=== PATIENT | female | born 1960 | race Caucasian/White ===

== ENCOUNTER 2017-03-03 22:07 | Observation (INO) ==
[2017-03-03] MEDS ORDERED: Nitroglycerin 0.4 MG TAB.SUBL SL ONE (22:26)
--- NOTE | 2017-03-03 22:31 | Emergency Department Note ---
Disposition Clinical Impression: Chest pain Qualifiers: Chest pain type: unspecified Qualified Code(s): R07.9 - Chest pain, unspecified Disposition: Admitted As Inpatient Condition: Good Chest Pain HPI - General Chief Complaint: ED Chest Pain Stated Complaint: chest pain Time Seen by Provider: 03/03/17 22:13 Source: patient Mode of arrival: EMS Limitations: no limitations Vital Signs Reviewed: Yes Nursing Notes Reviewed: Yes - History of Present Illness HPI Narrative: 57-year-old female history of hypertension, hyperlipidemia, diabetes who presents to the ER with a chief complaint of chest pain and dizziness. Patient states she was at work walking around when ever she experienced dizziness with left-sided chest pain. Describes it as pressure with radiation into her left arm. She states she also felt short of breath at that time. Patient sat down and EMS was called. Dizziness improved but she continued to have residual left- sided chest pain. Patient was given aspirin and 1 nitroglycerin prior to arrival. She reports she thinks she had a left heart catheterization in 2014 with a 30% blockage. She currently denies feeling dizzy. Does continue to have left-sided chest pain. Denies dyspnea, nausea, vomiting. No history of NM , DVT or PE. No other complaints. 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 Denies: nausea, vomiting, diaphoresis, syncope Treatments prior to arrival chest pain: aspirin, nitroglycerin - Related Data On Oral Contraceptives: No Home Medications Medication Instructions Recorded Confirmed Aspirin [Adult Low Dose Aspirin EC] 81 mg PO DAILY 09/18/15 03/04/17 Ibuprofen [Motrin] 800 mg PO TID 09/18/15 03/04/17 Lisinopril [Lisinopril] 10 mg PO DAILY 12/30/15 03/04/17 Loratadine [Allergy Relief] 10 mg PO DAILY 06/18/16 03/04/17 Citalopram [CeleXA] 20 mg PO DAILY 03/04/17 03/04/17 Fenofibrate Nanocrystallized 145 mg PO DAILY 03/04/17 03/04/17 [Tricor] glyBURIDE [GlyBURIDE] 0.5 tab PO 0800 03/04/17 03/04/17 Allergies Allergy/AdvReac Type Severity Reaction Status Date / Time ciprofloxacin [From Cipro] Allergy Dizziness Verified 09/18/15 18:35 Erythromycin Base Allergy Hives Verified 09/18/15 18:33 [From Erythrocin] All systems ED: reviewed and negative except as stated. Constitutional: Denies: fever Cardiovascular: Reports: chest pain. Denies: dyspnea on exertion Respiratory: Reports: dyspnea. Denies: cough, wheezes Gastrointestinal: Reports: nausea. Denies: abdominal pain, vomiting, diarrhea Neurological: Reports: other (dizziness). Denies: headache Chest Pain PMH - Past Medical History Medical history: Reports: diabetes, hyperlipidemia, hypertension, other Surgical history: Reports: appendectomy, , hysterectomy, other Psychiatric history: Reports: anxiety, depression, panic disorder - Social History Smoking Status: Never smoker Alcohol use: Reports: none Drug use: Reports: none Physical Exam - General Limitations: no limitations General appearance: alert, in no apparent distress - Head Head exam: atraumatic, normocephalic, normal inspection - Eye Eye exam: Present: normal appearance, EOMI - ENT ENT exam: normal exam - Neck Neck exam: Present: normal inspection, full ROM - Chest Chest inspection: Present: normal inspection, symmetric chest wall rise - Respiratory Respiratory exam: Present: normal lung sounds bilaterally - Cardiovascular Cardiovascular exam: Present: regular rate, normal rhythm, normal heart sounds - Abdominal Exam Abdominal exam: Present: soft, Non-Tender. Absent: tenderness - Extremities Exam Extremities exam: Present: normal inspection, full ROM - Expanded Upper Extremity Exam Shoulder exam: Present: normal inspection, full ROM Arm exam: Present: normal inspection, full ROM Elbow exam: Present: normal inspection, full ROM Forearm/Wrist exam: Present: normal inspection, full ROM Hand exam: Present: normal inspection, full ROM Vascular exam: Normal: radial pulse - Expanded Lower Extremity Exam Hip/Pelvis exam: Present: normal inspection, full ROM Upper leg exam: Present: normal inspection, full ROM Knee exam: Present: normal inspection, full ROM Lower leg exam: Present: normal inspection, full ROM Ankle exam: Present: normal inspection, full ROM Foot/toe exam: Present: normal inspection, full ROM Neurovascular/Tendon exam: Absent: motor deficit, sensory deficit - Neurological Exam Neurological exam: Present: alert, other (GCS 15. Nonfocal neurologic exam. Moves all extremities equally.) - Psychiatric Psychiatric exam: Present: normal affect, normal mood - Skin Skin exam: Present: warm, dry, intact, normal color Course Course Narrative: Patient seen and examined. Vital signs reviewed. We will continue giving nitroglycerin for chest pain. She has a nonfocal neurologic exam here with improvement dizziness. We will get an EKG, chest x-ray, labs including troponin. Patient will likely require admission for chest pain rule out. - Reevaluation(s) Reevaluation #1: Discussed results of labs and imaging with the patient. She is currently chest pain-free. Vital Signs Temperature 99.3 F 03/03/17 22:18 Pulse Rate 71 03/03/17 22:18 Respiratory Rate 20 03/03/17 22:18 Blood Pressure 118/91 03/03/17 22:18 O2 Sat by Pulse Oximetry 98 03/03/17 22:18 Temperature 98.3 F 03/04/17 15:03 Pulse Rate 61 03/04/17 15:03 Respiratory Rate 16 03/04/17 15:03 Blood Pressure 118/67 03/04/17 15:03 O2 Sat by Pulse Oximetry 96 03/04/17 15:03 Oxygen Delivery Oxygen Delivery Room Air Chest Pain - MDM Narrative Medical decision making narrative: 57-year-old female presents to the ER due to left-sided chest pain and dizziness. Chest pain resolved here after 2 nitroglycerin. EKG is nonischemic. Chest x-ray unremarkable. Initial troponin is negative. She is currently chest pain-free. Admitted to the hospitalist service for chest pain rule out. - Lab Data Lab results reviewed: Yes I reviewed the patient's lab results. Result diagrams: 03/04/17 05:35 03/04/17 05:35 Lab Results 03/03/17 03/03/17 03/03/17 Range/Units 22:42 22:42 22:42 WBC 9.7 (4.3-11.1) K/mcL RBC 4.26 (3.82-4.97) M/mcL Hgb 12.2 (11.5-15.4) g/dL Hct 36.7 (35.3-44.9) % MCV 86.2 (83.0-100.0) fL MCH 28.6 (28.0-33.3) pg MCHC 33.2 (31.6-35.5) g/dL RDW 13.2 (11.5-14.5) % Plt Count 254 (140-400) K/mcL MPV 9.9 (9.4-12.4) fL Immature Gran % 0.2 (0-4) % Seg Neutrophils % 62.3 % Lymphocytes % 29.1 % Monocytes % 5.8 % Eosinophils % 2.1 % Basophils % 0.5 % Neutrophils # 6.0 (1.6-8.9) K/mcL Lymphocytes # 2.8 (0.6-4.6) K/mcL Monocytes # 0.6 (0.0-1.3) K/mcL Eosinophils # 0.2 (0.0-0.6) K/mcL Basophils # 0.1 (0.0-0.2) K/mcL Sodium 141 (136-145) mEq/L Potassium 3.6 (3.5-4.5) mEq/L Chloride 109 (98-109) mEq/L Carbon Dioxide 22 (19-29) mEq/L BUN 30 H (7-20) mg/dL Creatinine 1.00 (0.57-1.11) mg/dL Est GFR ( Amer) > 60 (> 60) Est GFR (Non-Af Amer) 57 L (> 60) BUN/Creatinine Ratio 30 H (6-26) Glucose 152 H (70-99) mg/dL Calculated Osmolality 301 H (280-300) Calcium 9.5 (8.6-10.8) mg/dL Troponin I (0-0.03) ng/mL B-Natriuretic Peptide 47 (0-100) pg/mL 03/03/17 Range/Units 22:42 WBC (4.3-11.1) K/mcL RBC (3.82-4.97) M/mcL Hgb (11.5-15.4) g/dL Hct (35.3-44.9) % MCV (83.0-100.0) fL MCH (28.0-33.3) pg MCHC (31.6-35.5) g/dL RDW (11.5-14.5) % Plt Count (140-400) K/mcL MPV (9.4-12.4) fL Immature Gran % (0-4) % Seg Neutrophils % % Lymphocytes % % Monocytes % % Eosinophils % % Basophils % % Neutrophils # (1.6-8.9) K/mcL Lymphocytes # (0.6-4.6) K/mcL Monocytes # (0.0-1.3) K/mcL Eosinophils # (0.0-0.6) K/mcL Basophils # (0.0-0.2) K/mcL Sodium (136-145) mEq/L Potassium (3.5-4.5) mEq/L Chloride (98-109) mEq/L Carbon Dioxide (19-29) mEq/L BUN (7-20) mg/dL Creatinine (0.57-1.11) mg/dL Est GFR ( Amer) (> 60) Est GFR (Non-Af Amer) (> 60) BUN/Creatinine Ratio (6-26) Glucose (70-99) mg/dL Calculated Osmolality (280-300) Calcium (8.6-10.8) mg/dL Troponin I 0.00 (0-0.03) ng/mL B-Natriuretic Peptide (0-100) pg/mL - Radiology Data Radiology results reviewed: Yes I reviewed the patient's radiology results. Chest X-Ray 03/03/17 22:26 IMPRESSION: No acute cardiopulmonary process. D/ / Roosevelt Reyes MD / Roosevelt Reyes MD Interpreting Provider: Roosevelt Reyes MD - EKG Data EKG attestation: Yes I reviewed and interpreted this EKG. EKG results narrative: EKG demonstrates sinus rhythm with a rate of 77 bpm. Normal axis. Normal intervals. T-wave flattening in lead 3 unchanged from previous. No ST elevations or depressions. No acute ischemic findings. No significant changes from previous EKG dated 09/18/15. Heart Score - Score History: Slightly Suspicious EKG: Normal Age: 45-65 Risk Factors: Equal/Greater than 3 risk factor or history of atherosclerotic disease Troponin: Less than normal limit HEART Score Total: 3 S.B.A.R. - S.B.A.R. Situation: Demographics, MOA Background: Presenting Complaint, Relevant PMH, Meds, & Allergies Assessment: Vital Signs, Course and respsone to treatment, Exam Concerns, Patient/Family Expectation, Pertinant Lab Results, Outstanding Labs Recommendation: Barrier(s) to disposition, Recommendation based on pending studies, treatments, or consults S.B.A.R. Report Given to: Dr. Miranda Attestation Statement - Attestation Attestation: I examined this patient and my medical decision-making was reviewed with the Resident Physician, Dr. Gandhi. I agree with the documented findings, disposition and treatment plan as described except to the extent set forth below. Pt is a 57 yo wf, hx DM, HTN, hyperlipidemia, who presents with L sided CP which began at work with SOB and dizziness. Pt given baby ASA and 1 nitro with improved sxs on arrival to ER. Pt with hx CAD, hx LHC with known CAD. I agree with PE findings as documented. EKG NSR with no ischemic changes. Pt given nitro x 2 with resolution of sxs. Pt labs including trop and CXR wnl. Pt admitted for further eval of CP.
[2017-03-03 22:50] LABS: Basophils # 0.1 K/mcL (0.0-0.2); Basophils % 0.5 %; Eosinophils # 0.2 K/mcL (0.0-0.6); Eosinophils % 2.1 %; Hematocrit 36.7 % (35.3-44.9); Hemoglobin 12.2 g/dL (11.5-15.4); Immature Granulocytes % 0.2 % (0-4); Lymphocytes # 2.8 K/mcL (0.6-4.6); Lymphocytes % 29.1 %; Mean Corpuscular HGB Conc 33.2 g/dL (31.6-35.5); Mean Corpuscular Hemoglobin 28.6 pg (28.0-33.3); Mean Corpuscular Volume 86.2 fL (83.0-100.0); Mean Platelet Volume 9.9 fL (9.4-12.4); Monocytes # 0.6 K/mcL (0.0-1.3); Monocytes % 5.8 %; Platelet Count 254 K/mcL (140-400); Red Blood Count 4.26 M/mcL (3.82-4.97); Red Cell Distribution Width 13.2 % (11.5-14.5); Segmented Neutrophils % 62.3 %
[2017-03-03 23:01] LABS: BUN/Creatinine Ratio 30 (6-26); Blood Urea Nitrogen 30 mg/dL (7-20); Calcium 9.5 mg/dL (8.6-10.8); Carbon Dioxide 22 mEq/L (19-29); Chloride 109 mEq/L (98-109); Glucose 152 mg/dL (70-99); Osmolality,Calculated 301 (280-300); Potassium 3.6 mEq/L (3.5-4.5); Sodium 141 mEq/L (136-145); eGFR For African Americans > 60 (> 60); eGFR For Non-African Americans 57 (> 60)
--- NOTE | 2017-03-04 01:22 | Internal Med History&Physical ---
<Tung Brand - Last Filed: 03/04/17 01:52> Date of Encounter: 03/04/17 Time of Encounter: 00:30 Assessment and Plan (1) Pre-syncope Current visit: Yes Status: Acute Patient describes episode of presyncope at work earlier this seeking. She states she was bending over when it occurred originally it was made worse by standing. During this episode she began having chest pain as described earlier. During the presyncopal event she felt dizziness, vertigo, and nausea. She reports that he was made worse when she tried to sit and further worse when trying to stand. She states she was working in a hot environment, she was also started on glyburide this weekend. Patient presyncope could be result of hot environment, dehydration, chemical exposures (though unlikely), I prolactinemia, or ACS. We will pursue chest and rule out as below with echocardiogram, stress tests, trending troponins We will obtain bilateral carotid ultrasounds Initial started on 75 mL an hour, will saline We will hold patient glyburide and continue low-dose insulin sliding scale subcutaneously Continuous cardiac monitoring Supplemental oxygen as needed We will obtain hemoglobin A1c, lipid panel, electrolytes, PT/INR (2) Chest pain Current visit: Yes Status: Acute Patient reports chest pain starting in the left upper chest following episode of presyncope. Was described as heavy in character. She states that her chest pain moved to the center of her chest which tried to stand during her presyncopal episode. During this time she felt heaviness in her left arm as well. She denies having diaphoresis but does report nausea during this event. Patient has known history of CAD with 30% blockage from prior catheterization. Previous echo showed no abnormalities. Trend troponins every 6 hours We will obtain full echocardiogram We will obtain stress test Morphine and nitroglycerin for continued chest pain Qualifiers: Chest pain type: unspecified Qualified Code(s): R07.9 - Chest pain, unspecified (3) Diabetes mellitus Current visit: Yes Status: Acute Patient has history of type 2 diabetes, previously was controlled through left cell modifications but was started on glyburide on Friday. Patient's presyncopal episode and chest pain was the evening of Friday03/03/17. Hypoglycemia given her recent start medication is Prevacid differential for presyncope. 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 Will be admitted for chest pain rule out, initial troponin negative, no alarming EKG findings. Plan as above Qualifiers: Coronary Disease-Associated Artery/Lesion type: [place] artery [place] vs. transplanted heart: tanana heart Associated angina: with unspecified angina Qualified Code(s): I25.119 - Atherosclerotic heart disease of [place] coronary artery with unspecified angina pectoris (5) Hypertension Current visit: Yes Status: Chronic Continue patient home medication, lisinopril 10 mg daily Qualifiers: Hypertension type: essential hypertension Qualified Code(s): I10 - Essential (primary) hypertension (6) DVT prophylaxis Current visit: Yes Status: Acute 40 mg Lovenox subcutaneous daily (7) Depression Current visit: Yes Status: Acute Continue home medication, citalopram Qualifiers: Depression Type: major depressive disorder Major depression recurrence: recurrent Active/Remission status: remission status unspecified Qualified Code(s): F33.9 - Major depressive disorder, recurrent, unspecified Internal Medicine - H&P: HPI History of present illness: Ms. Higgins is a 57 year old female Past Med Surg Social Fam HX - Past Medical History Medical history: diabetes, hyperlipidemia, hypertension, other Psychiatric history: anxiety, depression, panic disorder - Past Surgical History Surgical History: appendectomy, , hysterectomy, other - Social History Smoking Status: Never smoker Smokeless Tobacco Status: No Alcohol use: none Drug use: none - Family History Mother Hx Family Cardiac Disorders: Yes (htn) Hx Family Endocrine Disorder: Yes (dm) Father Living Status: Still Living Hx Family Cardiac Disorders: Yes (mi) Hx Family Endocrine Disorder: Yes Internal Medicine - H&P: Meds Aspirin [Adult Low Dose Aspirin EC] 81 mg PO DAILY 09/18/15 [History] Ibuprofen [Motrin] 800 mg PO TID 09/18/15 [History] Lisinopril [Lisinopril] 10 mg PO DAILY 12/30/15 [History] Loratadine [Allergy Relief] 10 mg PO DAILY 06/18/16 [History] Citalopram [CeleXA] 20 mg PO DAILY 03/04/17 [History] glyBURIDE [GlyBURIDE] 0.5 tab PO 0800 03/04/17 [History] 3 Allergy/AdvReac Type Severity Reaction Status Date / Time ciprofloxacin [From Cipro] Allergy Dizziness Verified 09/18/15 18:35 Erythromycin Base Allergy Hives Verified 09/18/15 18:33 [From Erythrocin] All Systems PM: A 10-system review of systems was performed and is negative for pertinent findings except as documented above in the HPI. - Constitutional Vitals: Temp Pulse Resp BP Pulse Ox 99.3 F 71 16 109/61 98 03/03/17 22:18 03/03/17 22:18 03/04/17 00:36 03/04/17 00:36 03/03/17 22:18 Internal Med - H&P Results - Labs CBC & Chem 7: 03/03/17 22:42 03/03/17 22:42 <Anthony Miranda - Last Filed: 03/04/17 05:14> Date of Encounter: 03/04/17 Internal Medicine - H&P: HPI History of present illness: Ms. Higgins is a 57 year old female All Systems PM: A 10-system review of systems was performed and is negative for pertinent findings except as documented above in the HPI. - Constitutional Vitals: Temp Pulse Resp BP Pulse Ox 97.8 F 69 15 118/68 97 03/04/17 03:15 03/04/17 03:15 03/04/17 03:15 03/04/17 03:15 03/04/17 03:15 Internal Med - H&P Results - Labs CBC & Chem 7: 03/03/17 22:42 03/03/17 22:42 - Attending Attestation I have seen and examined pt independently. I have discussed with Resident Dr. Brand regarding the management plan. I have reviewed and agree with the documentation. Pt present with chest pain and dizziness. Hx of CAD per last [facility] result. Pain free now. Will cont cardiac monitoring. Track 3 sets of troponin. Echo and stress test.
[2017-03-04] MEDS ORDERED: *HR* Morphine 2 MG/ML SYRINGE IVP PRN (01:23)
[2017-03-04] MEDS ORDERED: Naloxone 0.4 MG/ML INJ IVP PRN (01:23)
[2017-03-04] MEDS ORDERED: Nitroglycerin 0.4 MG TAB.SUBL SL PRN (01:23)
[2017-03-04] MEDS ORDERED: Ondansetron 4 MG/2 ML VIAL IVP PRN (01:23)
[2017-03-04] MEDS ORDERED: 0.9 % Sodium Chloride 1,000 ML IVC SCH (01:30)
[2017-03-04] MEDS ORDERED: Ibuprofen 800 MG TABLET PO PRN (01:33)
[2017-03-04] MEDS ORDERED: D5% in Water 1,000 ML IVC PRN (01:34)
[2017-03-04] MEDS ORDERED: *HR* Dextrose 50 % in Water (Syg) 50 ML SYRINGE IVP PRN (01:34)
[2017-03-04] MEDS ORDERED: Dextrose Gel 15 GM PO PRN ×2 (01:34)
[2017-03-04 06:20] LABS: Basophils % 0.3 %; Eosinophils # 0.2 K/mcL (0.0-0.6); Eosinophils % 2.2 %; Hematocrit 39.3 % (35.3-44.9); Hemoglobin 12.5 g/dL (11.5-15.4); Immature Granulocytes % 0.3 % (0-4); Lymphocytes # 3.4 K/mcL (0.6-4.6); Lymphocytes % 37.4 %; Mean Corpuscular HGB Conc 31.8 g/dL (31.6-35.5); Mean Corpuscular Hemoglobin 28.1 pg (28.0-33.3); Mean Corpuscular Volume 88.3 fL (83.0-100.0); Monocytes # 0.6 K/mcL (0.0-1.3); Monocytes % 6.1 %; Neutrophils # 4.9 K/mcL (1.6-8.9); Platelet Count 245 K/mcL (140-400); Red Blood Count 4.45 M/mcL (3.82-4.97); Red Cell Distribution Width 13.2 % (11.5-14.5); Segmented Neutrophils % 53.7 %
[2017-03-04 06:26] LABS: Prothrombin Time 10.8 Seconds (9.4-12.1)
[2017-03-04 06:28] LABS: Activated Partial Thrombo Time 30.1 Seconds (26.0-36.0)
[2017-03-04] MEDS ORDERED: Pantoprazole 40 MG VIAL IVP SCH (06:30)
[2017-03-04 06:31] LABS: Hemoglobin A1C 6.1 %
[2017-03-04 06:36] LABS: BUN/Creatinine Ratio 31 (6-26); Blood Urea Nitrogen 27 mg/dL (7-20); Calcium 9.3 mg/dL (8.6-10.8); Carbon Dioxide 25 mEq/L (19-29); Chloride 109 mEq/L (98-109); Cholesterol 158 mg/dL (< 200); Glucose 90 mg/dL (70-99); HDL Cholesterol 52 mg/dL (40-59); LDL Cholesterol,Calculated 95 mg/dL (0-99); Osmolality,Calculated 299 (280-300); Potassium 3.7 mEq/L (3.5-4.5); Sodium 142 mEq/L (136-145); Triglycerides 53 mg/dL (< 150); eGFR For African Americans > 60 (> 60); eGFR For Non-African Americans > 60 (> 60)
[2017-03-04] MEDS ORDERED: Regadenoson 0.4 MG/5 ML SYRINGE IVP ONE (06:49)
[2017-03-04 06:56] LABS: Thyroid Stimulating Hormone 2.531 mcIU/mL (0.350-4.840)
[2017-03-04] MEDS ORDERED: *HR* Enoxaparin 40 MG/0.4 ML SYRINGE SQ SCH (07:00)
[2017-03-04] MEDS: Insulin LISPRO 300 UNITS/3 ML VIAL SQ SCH ×3 (07:22→17:38)
[2017-03-04] MEDS ORDERED: Aspirin Enteric Coated 81 MG Tablet PO SCH (09:00)
[2017-03-04] MEDS ORDERED: Loratadine 10 MG TABLET PO SCH (09:00)
--- NOTE | 2017-03-04 10:37 | Nuclear Medicine Stress Report ---
Regadenoson Nuclear Stress Name: Ester Higgins Date of Study: 03/04/2017 Date: 1960 Ht: 61.0 in Medical Record#: [id number] Age: 57 Wt: 210.0 lb Gender: Female Order #: [id number] Location: [facility] Room: Supervising Provider: Misbah Chavez CNP Reading Physician: David Fagan DO, FACC, TENISHA Ordering Physician: Flor Apple CNP Primary Care Physician: Christie Reyes CNP Stress Technologist: Ana Luisa Cool TERMINAL GAUGER SUPERVISOR, CCT [place] Hand: Wei Gallego Indications: Chest Pain Impression: Pharmacologic stress ECG is negative for ischemia at level of heart rate achieved. Gated EF > 70%. Perfusion imaging was negative for ischemia or infarct. History: Hypertension Diabetes Hypercholesteremia Stress Test Summary: Stress Test Type: Pharmacologic Regadenoson 0.4mg/5ml given IV Baseline Information: Initial Heart Rate: 57 Blood Pressure: 104/62 Stress Information: Test Terminated Due to (primary): As per protocol Maximum Blood Pressure: 122/74 Maximum Heart Rate: 88 Percent Maximum Heart Rate Achieved: 54 Double Product: 80032 METS Reached: 1 Symptoms: No chest symptoms Nuclear Summary: SPECT myocardial perfusion imaging using Tc99m Sestamibi given intravenously was performed at rest and following cardiac stress testing. The resting images were obtained following initial dose of 11.6 mCi. Following stress an additional dose of 34.6 mCi was given at peak exercise or 30 seconds post regadenoson infusion. Medication Given: Time Medication Dose Units Route Findings: Stress Note * Resting ECG demonstrated normal sinus rhythm. * No baseline arrhythmias were noted. * Pharmacologic stress ECG is negative for ischemia at level of heart rate achieved. * No arrhythmias were noted during stress. * Patient had no chest pain during stress. * Normal hemodynamic responses to pharmacologic stress. Study Quality * Study quality is average. Gated EF > 70% * Gated EF > 70%. Left Ventricle * The left ventricle is not dilated. LVEDV = 76 mL. NORMALS * Normal wall motion. * Normal segmental perfusion in rest. * Normal segmental perfusion in stress. TID * No evidence of transient ischemic dilatation. TID ratio = 1.35. Lung Uptake * There is no evidence of increase lung uptake. Updated by David Fagan DO, FACZaida, SHANNA, TENISHA on 03/04/2017 10:27:53 AM electronically signed on 03/04/2017 10:29:48 AM with status of Final
[2017-03-04 15:05] VITALS: BP 118/67
--- NOTE | 2017-03-04 17:08 | Electrocardiograph Report ---
[place] [id number] Test Date: 2017-03-03 Pat Name: Ester Higgins Department: 104 Room: 3B Gender: F Account Liaison: FRANKY : 1960 Requested By: Jim Gandhi Order Number: [id number] Reading MD: Ashanti Finley Measurements Intervals [place] Rate: 77 P: 39 [place]: 110 QRS: 43 QRSD: 90 T: 32 QT: 351 QTc: 383 Interpretive Statements SINUS RHYTHM WITH SHORT [place] INTERVAL Electronically Signed On 03-04-2017 17:06:21 EDT by Ashanti Finley
--- NOTE | 2017-03-04 18:52 | Discharge Summary ---
Date of Encounter: 03/04/17 Time of Encounter: 16:00 - Discharge Diagnosis (1) Pre-syncope Priority: Primary Status: Acute Comments: Patient reports episode of presyncope while at work last night prior to admission. Patient states that while she was at work last night, she bent over to push her stool over to another workstation and became dizzy. She denies diaphoresis but reports nausea. She says she was unable to keep her balance she was staggering, reports that the room was spinning. She reports that her legs felt weak and she was shaky. She noted when she was in the squad that her left foot was rotating inward and she was unable to return it to its normal position. She reports it took 6 people to move her onto the squad cot to bring her to the emergency department. Patient states that she felt as if she had no control over her legs, she said she would attempt to pick him up off the cause and was unable, left worse than right. She denies any difficulty with speech or vision and denied a history of same in the past. This episode lasted approximately 35-40 minutes. During this time she had chest pain that became worse with standing, better with lying down and was relieved with nitroglycerin. I did discuss with patient possible differential diagnoses including TIA, dehydration since she works in an area that is hot and she reports profuse diaphoresis while at work, and dizziness due to new medication. We discussed staying for an MRI in the morning, patient states that since she is better and she is already on an aspirin and a statin, she would like to go home and follow- up with her primary care provider. She denies chest pain and all others above- mentioned symptoms have resolved. Echocardiogram shows LVEF of 6065% with normal diastolic function and mild pulmonic regurgitation. Her stress test was negative for ischemia with a gaited EF of greater than 70%. Chest x-ray is negative for any acute cardiopulmonary process. BNP is 47, A1c 6 0.1, lipid panel is within normal limits, troponins were negative 2. All other labs are within normal limits. (2) CAD (coronary artery disease) Priority: Secondary Status: Chronic Comments: Patient denies chest pain, none since episode that precipitated visit to the emergency department. Continue aspirin, TriCor. Qualifiers: Coronary Disease-Associated Artery/Lesion type: [place] artery [place] vs. transplanted heart: [place] heart Associated angina: with unspecified angina Qualified Code(s): I25.119 - Atherosclerotic heart disease of [place] coronary artery with unspecified angina pectoris (3) Chest pain Priority: Secondary Status: Resolved Comments: Resolved. Plan as above. Qualifiers: Chest pain type: unspecified Qualified Code(s): R07.9 - Chest pain, unspecified (4) DVT prophylaxis Priority: Secondary Status: Acute Comments: Lovenox subcutaneous. (5) Diabetes mellitus Priority: Secondary Status: Acute Comments: A1c is 6.1. Patient has recently been changed to glyburide 2.5 mg daily in the morning. She reports hyperglycemia later in the day. Patient will need to follow-up with primary care for continued testing and evaluation. Accu-Cheks have been mildly hyperglycemic during admission. Qualifiers: Diabetes mellitus type: type 2 Diabetes mellitus complication status: without complication Diabetes mellitus jail insulin use: without a p manager use Qualified Code(s): E11.9 - Type 2 diabetes mellitus without complications (6) Depression Priority: Secondary Status: Chronic Comments: Continue home medications. Qualifiers: Depression Type: major depressive disorder Major depression recurrence: recurrent Active/Remission status: remission status unspecified Qualified Code(s): F33.9 - Major depressive disorder, recurrent, unspecified (7) Hypertension Priority: Secondary Status: Chronic Comments: Well controlled. Continue home medications. Qualifiers: Hypertension type: essential hypertension Qualified Code(s): I10 - Essential (primary) hypertension - Discharge Medications Home Medications: Aspirin [Adult Low Dose Aspirin EC] 81 mg PO DAILY 09/18/15 [History] Ibuprofen [Motrin] 800 mg PO TID 09/18/15 [History] Lisinopril [Lisinopril] 10 mg PO DAILY 12/30/15 [History] Loratadine [Allergy Relief] 10 mg PO DAILY 06/18/16 [History] Citalopram [CeleXA] 20 mg PO DAILY 03/04/17 [History] Fenofibrate Nanocrystallized [Tricor] 145 mg PO DAILY 03/04/17 [History] glyBURIDE [GlyBURIDE] 0.5 tab PO 0800 03/04/17 [History] Allergies/Adverse Reactions: 3 Allergy/AdvReac Type Severity Reaction Status Date / Time ciprofloxacin [From Cipro] Allergy Dizziness Verified 09/18/15 18:35 Erythromycin Base Allergy Hives Verified 09/18/15 18:33 [From Erythrocin] Procedures/tests Complete & Pending: Procedures Performed prior 72 hours Category Date Time Status NM jameel perf SPECT multi [NM] Stat Exams 03/04/17 01:23 Taken MR head/brain wo con [MR] Routine MRI 03/04/17 18:38 Ordered EV carotid duplex imaging BI Routine Y 03/04/17 01:47 Completed EV echocardiogram Routine Y 03/04/17 01:25 Completed SP pharm nuclear stress Routine Y 03/04/17 Completed Date of admission: 03/04/17 00:27 Primary care physician: Christie Reyes CNP Discharging clinician: Agnes Howe Anticipated date of discharge: 03/04/17 - Patient Status Disposition: Home, Self-Care Condition: Good Functional capacity at discharge: independent ambulation Overall status at discharge: patient is back to baseline - Discharge Instructions Follow Up With: Christie Reyes CNP [Primary Care Provider] - 03/11/17 9:00 am Additional Instructions: Follow-up with your primary care provider in the next 5-7 days for a follow-up visit. Return to the emergency department immediately if you have any other problems, if your pain or symptoms return or worsen. Resume your normal activities as tolerated. Follow up with primary care to be released back to work. Continue your normal home medications. - Diet and Activity Activity: return to work once cleared by your PCP/specialist, resume usual activities as tolerated Diet: diabetic diet, low fat, low cholesterol Hospital course: Ms. Higgins is a 57 year old female with past medical history of CAD, diabetes, depression, hypertension who presented to the emergency department after near syncopal episode at work prior to arrival. She reports sudden onset of dizziness while bending over to move her stool to another workstation. She denies diaphoresis but does report nausea. She reports staggering and unsteady gait, needing assistance. She reports room spinning. During this time she had pain in her left axilla with radiation to her left arm. She reports that her legs felt weak and they were shaky and she was unable to hold herself up. She noted that while she was in the squatted way here her left foot was turning in and she was unable to return to its normal position. She states that she had to lie down and keep her eyes closed, however, she was still very dizzy. It took 6 people to help her stand up and she reports having no control over her legs, left greater than right. She denies any difficulty with speech or vision , although she was unable to keep her eyes open for very long due to dizziness. She denies any history of the same in the past. This episode lasted approximately 35-40 minutes. She did note that the chest pain became significantly worse with standing, and was better with lying down and was relieved with nitroglycerin in the squad. Patient had an echocardiogram with an LVEF of 60-65% with normal LV diastolic function normal RV structure and function, and mild pulmonic regurgitation. Stress test was negative for ischemia or infarct with a gaited EF of greater than 70%. Chest x-ray was negative for any acute cardiopulmonary process. Troponins were negative. Patient states that during the episode at work her blood sugar was in the 180s and she had eaten 2 hours prior to event. She has had none of these symptoms since, she denies chest pain or dizziness. She has no focal neurological deficits and is able to ambulate in her room with steady gait. Her speech is clear. I discussed the possibility of a TIA due to her symptoms, she has declined staying for an MRI and states due to expense, she will follow up with her primary care. Patient also states that while at work she is profusely diaphoretic most of the time and states that she does hydrate well, however, she may have had mild dehydration on admission. Patient also reports recent medication change to glyburide, which dizziness as a side effect. Patient's A1c is 6.1 and she will need to follow-up with primary care for continued evaluation for necessity of continuation of treatment. Patient is already on an aspirin and a medication for her cholesterol, TriCor. She will continue these at home. She denies chest pain or any other symptoms at this time. She states that she feels fine and wants to go home and is declining further testing. Since she is asymptomatic and has returned to her baseline, I feel confident that she can go home and follow up with her primary care provider. Her labs are within normal limits, her vital signs are stable and within normal limits. Patient is stable and appropriate for discharge. - Time Spent with Patient Total time spent providing and/or coordinating discharge services: Less than 30 minutes - Constitutional Vitals: Temp Pulse Resp BP Pulse Ox 98.3 F 61 16 118/67 96 03/04/17 15:03 03/04/17 15:03 03/04/17 15:03 03/04/17 15:03 03/04/17 15:03 General appearance: Present: cooperative, A&O X 3, pleasant, no acute distress, answers questions appropriately - Head Head exam: Present: atraumatic, normocephalic - Eye Eye exam: Present: normal appearance, PERRL, conjuntiva pink Pupils: Present: PERRL - Neck Neck exam general surgery: Present: supple, trachea midline. Absent: lymphadenopathy, tenderness - Respiratory Respiratory exam: Present: CTAB. Absent: accessory muscle use, rales, respiratory distress, rhonchi, wheezes - Cardiovascular Cardiovascular exam: Present: RRR, +S1, +S2. Absent: diastolic murmur, gallop, rubs, systolic murmur - GI/Abdominal GI/Abdominal exam: Present: normal bowel sounds, soft, no peritoneal signs. Absent: distended, hepatomegaly, tenderness - Extremities Exam Extremities exam: Present: warm, radial pulses palpable and symmetrical. Absent : calf tenderness, cyanotic, pedal edema - Neurological Exam Neurological exam: Present: CN II-XII intact, oriented X3, no focal deficits. Absent: pronater drift, facial droop, speech deficit - Skin Skin exam: Present: dry, intact
[2017-03-04] MEDS ORDERED: Insulin LISPRO 300 UNITS/3 ML VIAL SQ SCH (21:00)
--- NOTE | 2017-03-05 07:18 | Carotid Imaging Report ---
Carotid Duplex Patient Name:Ester Higgins Order Number:[id number] Procedure Date:03/04/2017 Date:1960ge:57 yrs Gender:Female Lt BP:134 / 70 mmHg Rt.BP:131 / 69 mmHgHeart Rate: Location:[facility] Room #: [facility] Intermediate Manager:Leonardo Barkley RN, RDCS Referring MD:Tung Brand DO server manager:Christie Reyes, TECHNICAL SALES MANAGER Reading MD:Neil Lino MD Primary Indications:Pre-Syncope Risk Factors Yes/No Hypertension Yes Diabetes Yes Hypercholesterolemia Yes Smoker Previous No Hx of TIA No Hx of CVA No Anticoagulants No Hx of CAD/PTCA No Previous Vascular Surgery No Impressions: The bilateral carotid arteries are normal throughout. Recommendations: Test completed on 03/04/2017 at 10:40:00 am. Findings Carotid Duplex: Ashley scale imaging combined with Doppler flow analysis suggests normal findings bilaterally. Right: The right proximal common carotid artery has a PSV of 63 cm/s and a EDV of 5 cm/s. The right mid common carotid artery has a PSV of 105 cm/s and a EDV of 20 cm/s. The right distal common carotid artery has a PSV of 66 cm/s and a EDV of 18 cm/s. The right bifurcation has a PSV of 59 cm/s and a EDV of 16 cm/s. The right proximal internal carotid artery has a PSV of 67 cm/s and a EDV of 21 cm/s. The right mid internal carotid artery has a PSV of 59 cm/s and a EDV of 14 cm/s. The right distal internal carotid artery has a PSV of 90 cm/s and a EDV of 26 cm/s. The right eca has a PSV of 131 cm/s and a EDV of 13 cm/s. The right vertebral artery has a PSV of 52 cm/s and a EDV of 19 cm/s. The right mid internal carotid and right distal internal carotid arteries were not well visualized. Left: The left proximal common carotid artery has a PSV of 128 cm/s and a EDV of 20 cm/s. The left mid common carotid artery has a PSV of 70 cm/s and a EDV of 14 cm/s. The left distal common carotid artery has a PSV of 65 cm/s and a EDV of 18 cm/s. The left bifurcation has a PSV of 59 cm/s and a EDV of 22 cm/s. The left proximal internal carotid artery has a PSV of 62 cm/s and a EDV of 22 cm/s. The left mid internal carotid artery has a PSV of 102 cm/s and a EDV of 34 cm/s. The left distal internal carotid artery has a PSV of 55 cm/s and a EDV of 23 cm/s. The left eca has a PSV of 114 cm/s and a EDV of 17 cm/s. The left vertebral artery has a PSV of 46 cm/s and a EDV of 14 cm/s. The left mid internal carotid and left distal internal carotid arteries were not well visualized. Carotid Results Right PSV EDV Assessment Proximal CCA 63 5 Normal Mid CCA 105 20 Normal Distal CCA 66 18 Normal Bifurcation 59 16 Normal Proximal ICA 67 21 Normal Mid ICA 59 14 Not Well Visualized Distal ICA 90 26 Not Well Visualized ECA 131 13 Normal Vertebral Artery 52 19 Normal Left PSV EDV Assessment Proximal CCA 128 20 Normal Mid CCA 70 14 Normal Distal CCA 65 18 Normal Bifurcation 59 22 Normal Proximal ICA 62 22 Normal Mid ICA 102 34 Not Well Visualized Distal ICA 55 23 Not Well Visualized ECA 114 17 Normal Vertebral Artery 46 14 Normal Ratio's Right ICA/CCA Ratio: 0.86 ICA/CCA Values: 90/105 Left ICA/CCA Ratio: 1.46 ICA/CCA Values: 102/70 Updated by Neil Lino MD on 03/05/2017 7:09:37 AM electronically signed on 03/05/2017 7:10:10 AM with status of Final
== END 2017-03-04 19:40 | disposition home or self-care (01) ==
LOC: 3BNU 22:07 → EMEROO 22:07 → 3BNU 03-04 01:21
PROVIDERS: ADMIT Internal Medicine; ATTEND Nurse Practitioner Family

== ENCOUNTER 2021-10-07 01:28 | Observation (INO) ==
[2021-10-07] MEDS ORDERED: 0.9 % Sodium Chloride 1,000 ML IVC ONE (01:59)
[2021-10-07] MEDS ORDERED: Ondansetron 4 MG/2 ML VIAL IVP ONE (02:04)
[2021-10-07] MEDS ORDERED: DilTIAZem CD (24hr) 180 MG CAP.ER.24H PO STA (02:12)
[2021-10-07 02:48] LABS: Basophils # 0.1 K/mcL (0.0-0.2); Basophils % 0.7 %; Eosinophils # 0.2 K/mcL (0.0-0.6); Hematocrit 41.7 % (35.3-44.9); Hemoglobin 14.3 g/dL (11.5-15.4); Immature Granulocytes % 0.2 % (0-4); Lymphocytes # 3.2 K/mcL (0.6-4.6); Lymphocytes % 34.3 %; Mean Corpuscular HGB Conc 34.3 g/dL (31.6-35.5); Mean Corpuscular Hemoglobin 29.5 pg (28.0-33.3); Mean Corpuscular Volume 86.2 fL (83.0-100.0); Mean Platelet Volume 10.5 fL (9.4-12.4); Monocytes # 0.8 K/mcL (0.0-1.3); Monocytes % 8.4 %; Neutrophils # 5.1 K/mcL (1.6-8.9); Platelet Count 236 K/mcL (140-400); Red Blood Count 4.84 M/mcL (3.82-4.97); Red Cell Distribution Width 12.9 % (11.5-14.5); Segmented Neutrophils % 54.4 %; White Blood Count 9.4 K/mcL (4.3-11.1)
[2021-10-07 03:03] LABS: INR 1.1
[2021-10-07 03:04] LABS: Alanine Aminotransferase 33 Units/L (7-52); Albumin 3.9 g/dL (3.5-5.7); Albumin/Globulin Ratio 1.3 (1.1-2.2); Alkaline Phosphatase 103 Units/L (34-104); Aspartate Amino Transferase 22 Units/L (13-39); BUN/Creatinine Ratio 26 (6-26); Bilirubin,Total 0.4 mg/dL (0.3-1.0); Blood Urea Nitrogen 18 mg/dL (8-23); Calcium 9.4 mg/dL (8.6-10.3); Carbon Dioxide 22 mEq/L (23-29); Chloride 103 mEq/L (98-107); Globulin 2.9 g/dL (2.4-3.5); Glucose 192 mg/dL (70-105); Osmolality,Calculated 293 (280-300); Potassium 3.2 mEq/L (3.5-5.1); Sodium 138 mEq/L (136-145); Total Protein 6.8 g/dL (6.4-8.9); Troponin I < 0.03 ng/mL (< 0.04); eGFR For African Americans > 60 (> 60); eGFR For Non-African Americans > 60 (> 60)
[2021-10-07 03:17] LABS: Thyroid Stimulating Hormone 6.031 mcIU/mL (0.340-5.600)
[2021-10-07 03:25] LABS: Magnesium 1.4 mg/dL (1.6-2.6)
[2021-10-07] MEDS ORDERED: Acetaminophen 325 MG TABLET PO ONE (03:36)
[2021-10-07] MEDS ORDERED: Apixaban 5 MG TABLET PO STA (04:32)
[2021-10-07] MEDS ORDERED: DilTIAZem 50 MG/50 ML IV.SOLN IVC SCH ×2 (04:45→05:45)
[2021-10-07] MEDS ORDERED: Magnesium Oxide 400 MG TABLET PO STA (04:55)
[2021-10-07] MEDS ORDERED: Melatonin 3 MG TABLET PO PRN (05:06)
[2021-10-07] MEDS ORDERED: Naloxone 0.4 MG/ML INJ IVP PRN (05:06)
[2021-10-07] MEDS ORDERED: Ondansetron ODT 4 MG TAB.RAPDIS SL PRN (05:06)
[2021-10-07] MEDS ORDERED: Perflutren Lipid Microsphere 1.3 ML in 0.9 % Sodium Chloride 8.7 ML IVP PRN (05:09)
[2021-10-07] MEDS ORDERED: *HR* Dextrose 50 % in Water (Syg) 50 ML SYRINGE IVP PRN (05:10)
[2021-10-07] MEDS ORDERED: D5% in Water 1,000 ML IVC PRN (05:10)
[2021-10-07] MEDS ORDERED: Dextrose 4 GM Chewable Tablets PO PRN ×2 (05:10)
[2021-10-07] MEDS ORDERED: *HR* HYDROcodone/Acet 5/325 mg TABLET PO PRN (06:00)
[2021-10-07] MEDS ORDERED: Acetaminophen 325 MG TABLET PO PRN (06:00)
[2021-10-07] MEDS ORDERED: *HR* OxyCODONE Immed Rel 5 MG TABLET PO PRN (06:00)
[2021-10-07 06:01] LABS: Influenza A PCR Negative (Negative); Influenza B PCR Negative (Negative); Resp. Syncytial Virus PCR Negative (Negative)
[2021-10-07 06:02] LABS: SARS-CoV-2 by PCR (In House) Negative (Negative)
[2021-10-07] MEDS: Insulin LISPRO 300 UNITS/3 ML VIAL SUBQ SCH ×3 (06:48→16:26)
[2021-10-07 08:42] LABS: Chol/HDL Ratio 3.6 (0-4.9); Cholesterol 186 mg/dL (< 200); HDL Cholesterol 52 mg/dL (40-59); LDL Cholesterol,Calculated 116 mg/dL (< 100); Phosphorous 3.9 mg/dL (2.7-4.5); Triglycerides 89 mg/dL (< 150); Triiodothyronine (T3) Free 3.27 pg/mL (2.50-3.90); Triiodothyronine (T3) Total 109 ng/dL (87-178); Troponin I < 0.03 ng/mL (< 0.04)
[2021-10-07] MEDS: DilTIAZem 50 MG/50 ML IV.SOLN IVC SCH (10:37)
[2021-10-07 12:35] LABS: Estimated Average Glucose 157 mg/dl; Hemoglobin A1C 7.1 %
[2021-10-08] MEDS: Insulin LISPRO 300 UNITS/3 ML VIAL SUBQ SCH ×2 (00:26→06:11)
[2021-10-08 02:18] LABS: Mean Corpuscular HGB Conc 33.3 g/dL (31.6-35.5); Mean Corpuscular Hemoglobin 29.4 pg (28.0-33.3); Mean Corpuscular Volume 88.2 fL (83.0-100.0); Mean Platelet Volume 10.4 fL (9.4-12.4); Platelet Count 216 K/mcL (140-400); Red Blood Count 4.42 M/mcL (3.82-4.97); Red Cell Distribution Width 13.2 % (11.5-14.5); White Blood Count 9.1 K/mcL (4.3-11.1)
[2021-10-08 02:25] LABS: BUN/Creatinine Ratio 23 (6-26); Blood Urea Nitrogen 20 mg/dL (8-23); Calcium 9.3 mg/dL (8.6-10.3); Carbon Dioxide 25 mEq/L (23-29); Chloride 103 mEq/L (98-107); Glucose 191 mg/dL (70-105); Magnesium 1.6 mg/dL (1.6-2.6); Osmolality,Calculated 292 (280-300); Potassium 3.8 mEq/L (3.5-5.1); Sodium 137 mEq/L (136-145); eGFR For African Americans > 60 (> 60); eGFR For Non-African Americans > 60 (> 60)
[2021-10-08] MEDS: DilTIAZem 50 MG/50 ML IV.SOLN IVC SCH (07:29)
[2021-10-08] MEDS ORDERED: ALPRAZolam 0.25 MG TABLET PO PRN (07:35)
[2021-10-08] MEDS ORDERED: Gabapentin 400 MG CAPSULE PO PRN (07:35)
[2021-10-08 08:41] VITALS: O2SAT 98
[2021-10-08] MEDS ORDERED: Apixaban 5 MG TABLET PO SCH (09:00)
[2021-10-08] MEDS ORDERED: Aspirin Enteric Coated 81 MG Tablet PO SCH (09:00)
[2021-10-08] MEDS ORDERED: Insulin LISPRO 300 UNITS/3 ML VIAL SUBQ SCH ×2 (11:30→21:00)
[2021-10-08 11:40] VITALS: BP 127/75; PULSE 60; TEMP 98.4
[2021-10-08] MEDS ORDERED: *HR* Metformin 500 MG TABLET PO SCH (21:00)
== END 2021-10-08 13:33 | disposition home or self-care (01) ==
LOC: EMEROOARM 01:28 → 2ANU 01:28 → SUATTDRO 05:11 → 2ANU 05:33
PROVIDERS: ADMIT Internal Medicine; ATTEND Nurse Practitioner